=== PATIENT | male | born 1965 | race Caucasian/White ===

== ENCOUNTER 2021-04-22 05:42 | Day surgery (SDC) | payer OTHER, SELFPAY ==
[2021-04-19 08:32] VITALS: BMI 30.4
--- NOTE | 2021-04-21 10:05 | EKG12_ITS ---
Test Reason : PRE OP Blood Pressure : / mmHG Vent. Rate : 054 BPM Atrial Rate : 054 BPM P-R Int : 164 ms QRS Dur : 078 ms QT Int : 420 ms P-R-T Axes : 060 027 048 degrees QTc Int : 398 ms Sinus bradycardia Otherwise normal ECG Confirmed by CLARK ABEL, GABI ([id number]), development editor MARGARET EMERY ([id number]) on 04/22/2021 11:17:31 AM Referred By: Evans Jennings Confirmed By:GABI RODAS MD
[2021-04-22] VITALS (7 sets, daily range): BP systolic 135–156; BP diastolic 86–94; PULSE 52–72; RESP 16; TEMP 35.9–36.9; O2SAT 94–99; BMI 31.4
[2021-04-22] MEDS: Lactated Ringers 1,000 ML 100 ML IV ×2 (06:27→09:12)
--- NOTE | 2021-04-22 06:55 | HP.PCM_ITS ---
History and Physical Date of Admission: 04/22/21 Intake Vital Signs ? 04/19/2108:32 Height 5 ft 4.5 in Weight: 180 lb BMI 30.4 BP 162/99 H Blood Pressure Location Rt brachial Position Sitting Respiration 18 Intake Visit Reasons:?BILATERAL INGUINAL HERNIA Chief Complaint: bilateral inguinal hernia Tile Layer Required: No Is patient in pain?: No Allergies lisinopril Allergy (Mild, Verified 04/19/21 08:32) Anaphylaxis Medications acetaminophen 650 mg tablet,extended release 650 mg PO Q12H 04/19/21 [History] sildenafil 100 mg tablet ea PO 04/19/21 [History] PFSH Medical History?(Updated 04/19/21 @ 11:[address] Evans Jennings MD) Essential (primary) hypertension ischemic stroke Surgical History?(Updated 04/19/21 @ 08:20 by Maura Andrews) Adrenal gland cyst S/P colonoscopic polypectomy Family History?(Updated 04/19/21 @ 08:21 by Maura Andrews) Father Colon cancer Hypertension Heart disease Social History?(Updated 04/19/21 @ 08:20 by Maura Andrews) Smoking Status:? Never smoker alcohol intake:? never HPI HPI HPI: PAULO AZAR, is a 55 M who presents to the office today for groin bulging and pain.? The patient has been having pain especially on his right side with coughing and sneezing.? He says he feels a bulge on the side and it radiates the other side and there is bulging on that side as well.? This is been going on for months and becoming more more painful and he feels like he is having his intestines dropped down every time he coughs or sneezes. ROS General General: Yes fatigue; No weight change, appetite, colon cancer, breast cancer or weakness HEENT HEENT: No difficulty swallowing, eye injury, eye surgery, swollen glands or hoarseness Endo Endocrine: No thyroid disease, diabetes mellitus, thyroid cancer, Hair loss, heat intolerance or cold intolerance Skin Skin: No rash or changing moles Breast Breast: No left breast lump, right breast lump, nipple discharge, breast pain, abnormal mammogram, abnormal US or breast enlargement Musc Musculoskeletal: No back problems, arthritis, rheumatoid arthritis, gout or joint pain Cardio Cardiovascular: No murmur, pacemaker, heart disease, atrial fibrillation, high blood pressure, heart attack, heart stent, palpitations, shortness of breat with exertion or chest pain Psych Psychiatric: No depression, anxiety or hearing voices Resp Respiratory: No shortness of breath, No sleep apnea, No cough, No COPD, No asthma, No emphysema and No wheezing Gastro Gastrointestinal: Yes abdominal pain, No nausea or vomiting, No diarrhea, No constipation, No blood in stool, No acid reflux, No hemorrhoids, No ulcers, No gallbladder problem and No black,tarry stools Dilan Hematologic: No blood thinners, No blood disorders, No bleeding, No anemia and No blood clots Neuro Neurologic: No system reviewed and no additional complaints, except as documented, No as per HPI, No abnormal gait, No abnormal hearing, No abnormal movements, No abnormal speech, No behavioral changes, No burning sensations, No confusion, No convulsions, No disequilibrium, No dizziness, No localized weakness, No frequent falls, No headache(s), No lack of coordination, No loss of vision, No memory loss, No numbness, No other visual disturbances, No radicular pain, No restless legs, No sensory deficit, No syncope, No tingling, No tremor(s), No weakness and No other Exam Const General: cooperative Orientation: alert and oriented x3 HENKY Head: normal to inspection Neck Neck: normal visual inspection and full ROM Chest Chest palpation & inspection: normal inspection of the chest Resp Effort & Inspection: normal respiratory effort Auscultation: clear to auscultation bilaterally Cardio Rate: regular rate Rhythm: regular rhythm GI Inspection: non-distended Palpation: soft, hernia indirect inguinal bilaterally and nontender Skin General: no rashes or lesions noted Neuro General: patient alert and patient oriented x3 Extrem General: full ROM Psych Appearance: grossly normal Mental Status: mental status grossly normal Assessment and Plan Assessment and Plan (1) Bilateral inguinal hernia: ?Status:?Acute ?Qualifiers: ?Obstruction and gangrene presence:?without obstruction or gangrene?? Recurrence:?not specified as recurrent? Qualified Code(s):?K40.20 - Bilateral inguinal hernia, without obstruction or gangrene, not specified as recurrent ?Plan - Dr. Evans Jennings MD: The patient has bilateral inguinal hernias which are reducible.? He would like these repaired and they are becoming more painful.? I discussed open versus laparoscopic inguinal hernia repair with him.? I discussed bilateral laparosc [facility] robotic assisted inguinal hernia repair with mesh.? I discussed the procedure in detail as well as the recovery.? I discussed the risks of the procedure including but not limited to bleeding, infection, injury to spermatic cord, injury to underlying bowel, injury to blood vessels or bladder.? I also discussed mesh placement as well as the risk of recurrence of hernia.? I also discussed chronic groin pain with the patient.? The patient understands all the risks and the recovery and he would like to proceed with laparoscopic robotic assisted bilateral inguinal hernia repair with mesh. Evans Jennings MD Pager: [facility] [address] [place] [address] [address] [place] [address] Office: I have re-examined the patient. There are no clinical changes since date of exam. Assessment & Plan Assessment/Plan (1) Bilateral inguinal hernia: QUALIFIERS: Obstruction and gangrene presence: without obstruction or gangrene Recurrence: not specified as recurrent Qualified Code(s): K40.20 - Bilateral inguinal hernia, without obstruction or gangrene, not specified as recurrent
[2021-04-22] MEDS: Cefazolin 2 GM in 0.9% Normal Saline 100 ML IV (07:25)
--- NOTE | 2021-04-22 07:30 | HERN_PTH ---
PATIENT: PAULO AZAR LOC: [facility] U#:[id number] AGE/SX: 55/M ROOM: RE04/22/[address]: Dr. Evans Jennings MD : 1965 BED: DIS: 04/22/2021 SPEC #: [id number] RECD: 04/22/21 10:22 STATUS: SHANNA REQ #: [id number] EMMA: 04/22/21 07:[address]: Evans Jennings DEPT: SURGICAL PATHOLOGY RECD BY: Marlene Velasquez ENTERED: 04/22/21 11:08 SP TYPE: Hernia OTHR DR: Dr. Shun Cuellar, DO Tissues: A - HERNIA B - HERNIA Procedures: Surgery Specimen Level III HEADER OPERATION: Robotic assisted inguinal hernia repair with mesh PRE-OP DIAGNOSIS: Bilateral inguinal hernia TISSUE SUBMITTED: A ? Lipoma of right inguinal cord, B - Lipoma of left inguinal cord MICROSCOPIC DIAGNOSIS A. Lipoma of right inguinal cord: Mature adipose tissue, consistent with lipoma. B. Lipoma of left inguinal cord: Mature adipose tissue, consistent with lipoma. RODRIGUEZ:ludwni 04/23/2021 MICROSCOPIC DESCRIPTION Slides are reviewed. GROSS DESCRIPTION A - Received in fixative is one container labeled with the patient's name and designated lipoma of right inguinal cord. The specimen consists of multiple irregular fragments of yellow fatty tissue that in aggregate measure 8 x 4 x 1 cm. Food Specialist portions are submitted in two cassettes. B - Received in fixative is one container labeled with the patient's name and designated lipoma of left inguinal cord. The specimen consists of multiple irregular fragments of yellow fatty tissue that in aggregate measure 9 x 4 x 1 cm. Food Specialist portions are submitted in two cassettes. / AM:ludwin TC:1 [facility]: [id number] x2
[2021-04-22] MEDS: Bupivacaine Mpf 0.5% 30 ML VIAL (08:30)
--- NOTE | 2021-04-22 08:48 | PCM.OPRPT ---
Problems Associated Problem List Diagnoses (1) Bilateral inguinal hernia: Report of Operation Date of Procedure: 04/22/21 Pre-Operative Diagnosis: Bilateral inguinal hernias Post-Operative Diagnosis: Same Surgery/Procedure Performed:: Robotic assisted laparoscopic bilateral inguinal hernia repair with mesh Specimen's removed: Right and left cord lipomas Description of Procedure: The patient was brought back to the operating room and general anesthesia was induced. The abdomen was prepped and draped in the usual sterile fashion. An incision was made superior to the umbilicus deep to the fascia was resolve it and incised. A port was placed into the abdomen and it was insufflated to 15 mmHg. The camera was inserted and the abdomen was checked for any injuries from entry and there were none. Next the patient was placed in Trendelenburg position and the inguinal regions were inspected. The patient had bilateral inguinal hernias. He had a left inguinal indirect hernia containing colon and a right indirect sliding inguinal hernia with small bowel adherent to the peritoneum. Next an 8 mm port was placed on the right and left side under direct visualization. The robot was then docked. Using cautery scissors the right peritoneal tissue was incised and dissection was carried inferiorly until the hernia sac was identified. Hernia sac was fully reduced including small bowel contents. There was a large right inguinal cord lipoma which was dissected free using electrocautery and removed it was sent for pathology. The progrip mesh was then placed in the right inguinal region and unfolded completely covering the inguinal hernia. The peritoneum was then reapproximated using a running 3-0 VLock suture completely covering the mesh. Next attention was paid to the left inguinal region. In similar fashion the left peritoneum was incised using electrocautery scissors and the dissection was carried inferiorly until the hernia sac was identified. The hernia sac was reduced and there was a large cord lipoma removed from the left inguinal cord. This was removed and sent for pathology. Once the hernia was fully dissected free a progrip mesh was unfolded and placed over the inguinal hernia completely covering the hernia with good overlap. The peritoneum was reapproximated using running 3-0V lock suture completely covering the mesh. Next the air was allowed to desufflate from the abdomen and while desufflation was occurring it appeared the meshes were in satisfactory position and completely covered. The scrotum was checked and contain both testicles. Next the air was allowed to fully be removed from the abdomen and the midline fascia was closed with 2 interrupted 0 Vicryl sutures. All of the incisions were injected with local anesthetic and the skin was closed with interrupted 4-0 Monocryl suture and Steri-Strips and bandages. The patient was then awoken and taken to PACU in stable condition and tolerated the procedure well. Grafts/Implants Used: Progrip mesh bilaterally Admit VTE Documentation VTE Mechan Device Prophylaxis: SCD's
--- NOTE | 2021-04-22 08:53 | EX.PCM.DISCH ---
Discharge Instructions Procedure Hernia Diet Discharge Diet: Light diet - advance as tolerated Activity Discharge Activity: May Not Drive (for 2-3 days or while taking narcotic pain meds.) and May Shower (with the bandage in place 1-2 days after surgery.) Lifting Restrictions: 20 pounds for 6 weeks. Additional Activity Instructions:: Climbing stairs is fine, walking is encouraged. Sitting in bed may be uncomfortable. Sitting up using your lateral muscles (sitting up sideways) is usually more comfortable. Do not drive, work heavy equipment of sign legal documents for 24 hours. If your hernia repair was an ingunial repair, you may have scrotal swelling, an ice pack and/or athletic support can provide more comfort. Pain medications may cause nausea, you should typically eat light foods as you take your pain medications. Pain medications may also cause constipation. If you have difficulty with this, discuss with your doctor. Dressing / Incision Call your doctor if your incision/area has: Continuous Slow Oozing, Sudden Increased Bleeding, Increased Pain/ Swelling, Increased Redness, Foul Smelling Discharge and Swelling at the incision site Call your doctor if you observe: Fever of 101 or Higher Suture Line Care: Avoid Pulling/Pushing and Avoid Pinching/Bending Remove Dressing in: 3 days (Remove steri strips in 7-10 days) Cleanse incision/area with: Soap & Water Follow Up Care Please Follow Up With: Evans Jennings MD When: Please call to schedule 2 week follow up appointment. [phone] Test Results: Test results from this visit will be discussed in further detail at your follow-up appointment, if applicable. Discharge Plan Admission Attending Provider: Evans Jennings Primary Care Provider: Shun Cuellar Discharge Orders/Prescriptions Prescriptions: New oxycodone-acetaminophen [Percocet] 5-325 mg tablet 1 tab PO Q4H PRN (Reason: pain) 3 Days Qty: 10 RF: 0 No Action sildenafil 100 mg tablet 1 ea PO PRN PRN (Reason: PRN) RF: 0 acetaminophen [Tylenol 8 Hour] 650 mg tablet extended release 650 mg PO Q12H RF: 0 Referrals / Follow Up: Shun Cuellar DO [Primary Care Provider] - Disposition Disposition (needs filled in before D/C Order can be placed): Home, self care
== END 2021-04-22 11:44 | disposition home or self-care (01) ==
LOC: SDC 05:42 → AC 05:43
PROVIDERS: PCP Family Medicine; Referring Provider Surgery; Visit Provider Surgery
PROC: (CPT 49650; principal; 2021-04-22 07:10)
DX: K40.20 Bilateral inguinal hernia, without obstruction or gangrene, not specified as recurrent (principal); D17.6 Benign lipomatous neoplasm of spermatic cord; M19.90 Unspecified osteoarthritis, unspecified site; Z20.822 Contact with and (suspected) exposure to COVID-19; Z86.73 Personal history of transient ischemic attack (TIA), and cerebral infarction without residual deficits
CPT/HCPCS: 00840; 49650; S2900; 87426; 88302; 88304; 93005; C9803; J7120; J2405

== ENCOUNTER → 2021-05-04 10:16 | Outpatient (CLI) | payer OTHER, SELFPAY ==
[2021-04-22 06:03] VITALS: BMI 31.4
[2021-05-04 10:52] LABS: Absolute Lymphocyte Count 1.28 X10^3/uL (0.83-4.51); Absolute Neutrophil Count 4.1 X10^3/uL (2.0-7.7); Basophil# 0.03 X10^3/uL; Basophil% 0.5 % (0-1); Eosinophil# 0.14 X10^3/uL; Eosinophils% 2.3 % (0-5); Hematocrit 45.2 % (40-54); Hemoglobin 14.5 g/dL (13.0-16.5); Lymphocyte # 1.28 X10^3/ul (0.83-4.51); Lymphocyte % 21.3 % (19-41); Mean Corp Hgb Conc 32.1 g/dL (32-36); Mean Corpuscular Hgb 28.4 pg (27.0-32.0); Mean Corpuscular Volume 88.5 fL (80-94); Mean Platelet Vol. 9.5 fl (6.2-12.0); Monocyte# 0.46 X10^3/uL; Monocyte% 7.7 % (0-10); NRBC Flagged by Analyzer 0 % (0-5); Neutrophil # 4.07 X10^3/uL (2.7-7.7); Neutrophil % 67.7 % (47-70); Platelet Count 231 K/mm3 (150-450); RBC Distribution Width SD 38.5 fl (35.1-43.9); Red Blood Count 5.11 M/mm3 (4.6-6.2)
[2021-05-04 11:07] LABS: Anion Gap 5 (5-15); BUN 24 mg/dL (7-18); BUN/Creat Ratio 19.4 RATIO (10-20); Calcium,Total 9.3 mg/dL (8.5-10.1); Chloride 105 mmol/L (98-107); Creatinine, Serum 1.24 mg/dL (0.70-1.30); EST Glomerular Filtration Rate 64 mL/min (>60); Est Glom Filt Rate - Afr Amer 77 mL/min (>60); Glucose 106 mg/dL (74-106); Potassium 4.3 mmol/L (3.5-5.1); Sodium Level 141 mmol/L (136-145)
[2021-05-04 18:44] LABS: Xtra Tube EP Lab EXTRA TUBE
== END ==
PROVIDERS: PCP Family Medicine; Referring Provider Surgery; Visit Provider Surgery
DX: R53.83 Other fatigue (principal)
CPT/HCPCS: 36415; 80048; 85025

== ENCOUNTER → 2021-05-06 08:46 | Outpatient (CLI) | payer OTHER, SELFPAY ==
[2021-04-22 06:03] VITALS: BMI 31.4
[2021-05-06 09:31] LABS: Anion Gap 2 (5-15); BUN 22 mg/dL (7-18); BUN/Creat Ratio 17.1 RATIO (10-20); Calcium,Total 9.4 mg/dL (8.5-10.1); Chloride 106 mmol/L (98-107); Creatinine, Serum 1.29 mg/dL (0.70-1.30); EST Glomerular Filtration Rate 61 mL/min (>60); Est Glom Filt Rate - Afr Amer 74 mL/min (>60); Glucose 111 mg/dL (74-106); Potassium 4.3 mmol/L (3.5-5.1); Sodium Level 138 mmol/L (136-145)
== END ==
PROVIDERS: PCP Family Medicine; Referring Provider Surgery; Visit Provider Surgery
DX: R53.83 Other fatigue (principal)
CPT/HCPCS: 36415; 80048